=== PATIENT | female | born 1950 | race Caucasian/White ===

== ENCOUNTER 2019-02-24 08:10 | Outpatient (CLI) | payer OTHER ==
--- NOTE | 2019-02-24 10:27 | CT ---
CT ABDOMEN AND PELVIS PERFORMED WITH CONTRAST ENHANCEMENT: Date: 02/24/19 HISTORY: Right-sided pain for past couple of months. FINDINGS: The lung bases are clear of any infiltrative process. There are diffuse fatty changes of the liver. A hypodensity within the right lobe measures in the 2.6 cm range, most compatible with a cyst with CT Hounsfield unit number of 4. The liver measures approx imately 18.0 cm in length. Spleen is within normal limits of size. Pancreas region is unremarkable. G allbladder appears to have been removed. Right and left adrenal glands, and right and left kidneys are normal in size. There is no significant periaortic or mesenteric lymphadenopathy. CT of pelvis performed with contrast enhancement. There is some minimal sigmoid diverticulosis noted. No inflammatory change. No adenopathy or mass. There is a small follicle involving the region of the right adnexa. Uterus appears to be absent. Difficult to definitively identify an appendix. I see no abnormality in the region of the appendix. IMPRESSION: 1. Marked diffuse fatty changes of the liver. 2. 2.5 cm right lobe hepatic cyst. 3. Minimal sigmoid diverticulosis. POS: [facility]
== END 2019-02-24 08:11 | disposition home or self-care (01) ==
LOC: CT 08:10
PROVIDERS: ATTEND Physician Assistant
DX: R10.11 Right upper quadrant pain (principal); R10.12 Left upper quadrant pain; K57.30 Diverticulosis of large intestine without perforation or abscess without bleeding; K76.0 Fatty (change of) liver, not elsewhere classified; K76.89 Other specified diseases of liver
CPT/HCPCS: 74177